=== PATIENT | female | born 1970 | race Caucasian/White ===

== ENCOUNTER 2022-04-16 07:10 | Day surgery (SDC) | payer BC, OTHER ==
[~2022-04-16] VITALS: Ht 165.1 cm; Wt 85.0 kg
[~2022-04-16 07:10] MED LIST: CYCLOBENZAPRINE10 MG PO; HYDROXYZINE HCL25 MG PO; LAMICTAL100 MG PO; MULTI VITAMIN1 EACH PO; OXYBUTYNIN CHLO10 MG PO; PERCOCET 5-3251 EACH PO; TRAMADOL HCL50 MG PO
[2022-04-16] MEDS ORDERED: ZINC30 MG PO (07:44)
--- NOTE | 2022-04-16 09:22 | NUR ---
04/16/22 0922 Moiz Pritchard REORIENTED TO TIME AND SITUATION. DENIES NAUSEA OR PAIN. FALLS ASLEEP EASILY
--- NOTE | 2022-04-16 10:49 | OR ---
[facility] [address] [place], [place] [address] Signed DATE OF OPERATION: 04/16/2022 SURGEON: Martha Weaver MD PREOPERATIVE DIAGNOSIS: Cologuard positive stool. POSTOPERATIVE DIAGNOSES: 1. 5 mm polyps x3 at 7 cm. 2. 5 mm polyps x3 at 12 cm. 3. Minimal sigmoid diverticulosis. 4. 12 mm pedunculated polyp at 25 cm (snare). 5. 7 mm sessile polyp at 55 cm. 6. 4 mm polyp at 18 cm (rectosigmoid junction). PROCEDURE: Colonoscopy with snare polypectomy and hot biopsy. ESTIMATED BLOOD LOSS: None. INDICATIONS: Kimberly is a 51-year-old female asked to see me for her initial colonoscopy. Her Cologuard stool sample came back positive. She told me her father also had a positive Cologuard test. They are both awaiting the colonoscopies. She talks about gluten sensitivity, but she is able to take Metamucil. She has no lower GI complaints. No family history of colon cancer or polyps. In the office, I gave her a pamphlet on colonoscopy and we reviewed the nature of the test along with the risks including, but not limited to gas bloating, crampy abdominal pain, bleeding, perforation requiring surgery, and missed diagnosis. We also reviewed the written instructions for a bowel prep line by line. We also reviewed the need for IV conscious sedation. She had expressed understanding and wished to proceed. PROCEDURE NOTE: Kimberly was taken into our endoscopy suite and placed in the left lateral decubitus position. She was given a total of 8 mg of Versed and 175 mcg of fentanyl to cover the case. A digital rectal exam was performed and this was unremarkable. She had good sphincter tone. There were no masses. The adult colonoscope had been introduced and advanced up into the cecum under direct visualization of the camera without difficulty. Her prep was good. She could take a little extra prep next time if she prefers. We Electronically Signed By: MARTHA WEAVER MD 04/16/22 1049 PATIENT NAME: KIMBERLY VIVAS OPERATIVE REPORT DATE OF : 68 REPORT #: [id number] PHYSICIAN: MARTHA WEAVER MD PCP: LENNIE ARGUETA MD REPORT IS CONFIDENTIAL AND NOT TO BE RELEASED WITHOUT AUTHORIZATION [facility] [address] [place] [id number] Signed could see the appendiceal orifice and the ileocecal valve. The scope was then slowly withdrawn. The above-mentioned polyps were taken out mostly with a hot biopsy forceps. We did use the snare at 25 cm. We then went back and cauterized the stump as well. That polyp may have been the source of her positive Cologuard test. Once in the rectum, the scope had been retroflexed and she really has very minimal internal hemorrhoid tissue. After this, the gas was suctioned out and the colonoscope removed. Kimberly tolerated the procedure quite well. RECOMMENDATIONS: I will see Kimberly back in my office in 7 to 14 days to review her results. She might consider a shorter interval for her colonoscopy due to the number of polyps and size of the polyps that she has had. She might also consider a little extra bowel prep. Martha Weaver MD ALB/MODL /[id number] cc: MD Lennie Shaikh MD Copies: MARTHA WEAVER MD ~ Electronically Signed By: MARTHA WEAVER MD 04/16/22 1049 PATIENT NAME: KIMBERLY VIVAS OPERATIVE REPORT DATE OF : 68 REPORT #: [id number] PHYSICIAN: MARTHA WEAVER MD PCP: LENNIE ARGUETA MD REPORT IS CONFIDENTIAL AND NOT TO BE RELEASED WITHOUT AUTHORIZATION
--- NOTE | 2022-04-22 14:19 | PATH ---
[facility] [address] [facility] [place] [place] [address] Signed SPECIMEN(S): A RECTAL POLYP AT 7 CM SPECIMEN(S): B RECTAL POLYP AT 12 CM SPECIMEN(S): C COLON POLYP AT 25 CM SPECIMEN(S): D DESCENDING/LEFT COLON POLYP AT 55 CM SPECIMEN(S): E COLON POLYP AT 18 CM SPECIMEN SOURCE: A. RECTAL POLYP AT 7 CM B. RECTAL POLYP AT 12 CM C. COLON POLYP AT 25 CM D. DESCENDING/LEFT COLON POLYP AT 55 CM E. COLON POLYP AT 18 CM CLINICAL HISTORY: Initial screening colonoscopy. Positive Cologuard. Postop: Diverticulosis FINAL PATHOLOGIC DIAGNOSIS: A. Colon, rectal polyp at 7 cm, biopsy: - Hyperplastic polyp. B. Colon, rectal polyp at 12 cm, biopsy: - Hyperplastic polyp. C. Colon, polyp at 25 cm, biopsy: - Tubular adenoma. D. Colon, descending/left polyp at 55 cm, biopsy: - Tubular adenoma. E. Colon, polyp at 18 cm, biopsy: - Colonic mucosa with superficial hyperplastic changes and extensive heat artifact. - Negative for dysplasia and carcinoma, in the sections examined. NRT:cml:C2NR MICROSCOPIC EXAMINATION: Histologic sections of all submitted blocks are examined by light microscopy. These findings, together with the gross examination, support the pathologic diagnosis. GROSS DESCRIPTION: Five specimens are received in five containers, labeled "SO." A. The specimen, labeled "SO, #1," and designated on the requisition "rectum polypectomy 7 cm," is received in formalin and consists of five thurston soft tissue fragments that measure 0.3 up to 0.5 cm in PATIENT NAME: KIMBERLY VIVAS PATHOLOGY DATE OF : 68 REPORT #: [id number] PHYSICIAN: GRACE CALLOWAY PCP: DIANN ARGUETA MD REPORT IS CONFIDENTIAL AND NOT TO BE RELEASED WITHOUT AUTHORIZATION [facility] [address] [place], [place] [address] Signed greatest dimension. The specimen is entirely submitted in cassette (A1). B. The specimen, labeled "SO, 2," and designated on the requisition "rectum polypectomy 12 cm," is received in formalin and consists of three thurston soft tissue fragments that measure 0.3 up to 0.4 cm in greatest dimension. The specimen is entirely submitted in cassette (B1). C. The specimen, labeled "SO, 3," and designated on the requisition "colon polypectomy 25 cm," is received in formalin and consists of multiple, somewhat polypoid, brown to thurston soft tissue fragments that measure less than 0.1 up to 1.4 cm in greatest dimension. The largest polyp resection margin is inked blue and the polyp is bisected. The specimen is submitted entirely as follows: C1 bisected polyp C2 remaining specimen D. The specimen, labeled "SO, 4," and designated on the requisition "descending/left, polypectomy, 55 cm," is received in formalin and consists of one thurston soft tissue fragment that measures 0.3 cm in greatest dimension. The specimen is entirely submitted in cassette (D1). E. The specimen, labeled "SO, 5," and designated on the requisition "colon polypectomy 18 cm," is received in formalin and consists of one thurston-white to thurston soft tissue fragment that measures 0.2 cm in greatest dimension. The specimen is entirely submitted in cassette (E1). AI (under the direct supervision of a pathologist) The Gross Description was prepared using a voice recognition system. The report was reviewed for accuracy; however, sound-alike word errors, addition and/or deletions may occur. If there is any question about this report, please contact Client Services. PERFORMING LABORATORY: The technical component was performed by [facility], [address] [place] [address] (CLIA# [id number]). [facility], [address] [place] [address] (CLIA# [id number]). Diagnostician: Stacey Fierro MD Pathologist Electronically Signed 04/22/2022 PATIENT NAME: KIMBERLY VIVAS PATHOLOGY DATE OF : 68 REPORT #: [id number] PHYSICIAN: GRACE CALLOWAY PCP: DIANN ARGUETA MD REPORT IS CONFIDENTIAL AND NOT TO BE RELEASED WITHOUT AUTHORIZATION
== END 2022-04-16 09:47 | disposition home or self-care (01) ==
LOC: OPS 07:10 → DS 07:10 → OPS 08:15
PROVIDERS: ATTEND Colon & Rectal Surgery
PROC: 0D5E8ZZ Destruction of Large Intestine, Via Natural or Artificial Opening Endoscopic (ICD-10-PCS; principal; 2022-04-16 08:15)
DX: D12.4 Benign neoplasm of descending colon (principal); K62.1 Rectal polyp; K57.30 Diverticulosis of large intestine without perforation or abscess without bleeding; K64.8 Other hemorrhoids; F17.210 Nicotine dependence, cigarettes, uncomplicated; F31.9 Bipolar disorder, unspecified; K90.41 Non-celiac gluten sensitivity; Z88.2 Allergy status to sulfonamides; Z88.0 Allergy status to penicillin; Z88.8 Allergy status to other drugs, medicaments and biological substances; Z91.018 Allergy to other foods
CPT/HCPCS: 99153; G0500; J2250; J3010; J7121